=== PATIENT | male | born 2000 | race Caucasian/White ===

== ENCOUNTER 2023-12-27 18:32 | Emergency (ER) | payer OTHER ==
--- NOTE | 2023-12-27 19:51 | ER ---
Nurse's Notes [facility] Name: Sourav Vidal Age: 23 yrs Sex: Male : 2000 Arrival Date: 12/27/2023 Time: 18:32 Bed Waiting Private MD: Diagnosis: Presentation: 12/26 18:50 Note CALLED PT NO ANSWER. db 19:14 Note CALL NO ANSWER. db 19:38 Note called pt no answer. tm6 ED Course: 18:34 Patient arrived in ED. im 18:38 [facility] sb4 18:38 Marlon Harris MD is Attending Physician. sb4 18:50 Patient's name was called from ER lobby. No response. db 19:14 Patient's name was called from ER lobby. No response. db 19:48 Patient's name was called from ER lobby. No response. vc1 Administered Medications: No medications were administered Outcome: 19:48 Eloped from waiting room, before seeing physician vc1 19:50 Patient left the ED. vc1 Signatures: Michell Roberson RN RN vc1 Candelaria Jimenez RN RN Joyce Aquino PA-C PA-C sb4 Shavon Oakley Tawney RN RN tm6
== END 2023-12-27 19:50 | disposition left against medical advice (07) ==
LOC: ER 18:32
DX: Z02.9 Encounter for administrative examinations, unspecified (principal)